=== PATIENT | female | born 1970 | race Caucasian/White ===

== ENCOUNTER 2018-05-16 10:44 | Emergency (ER) | payer SELFPAY ==
[2018-05-16] MEDS ORDERED: IPRATROPIUM BROM 0.5MG/2.5ML ONE (11:39)
[2018-05-16] MEDS ORDERED: ALBUTEROL 2.5 MG/3 ML NEB SOL ONE (11:39)
--- NOTE | 2018-05-16 13:20 | RAD REPORT ---
EXAM DESCRIPTION: Maggie Dobbins (2 Views)05/16/2018 12:03 pm CLINICAL HISTORY: Cough COMPARISON: January 2017 FINDINGS: The lungs appear clear of acute infiltrate. The heart is normal size IMPRESSION: No acute abnormalities displayed
--- NOTE | 2018-05-16 13:26 | ER ---
Nurse's Notes [facility] Name: Zeynep Sagastume Age: 48 yrs Sex: Female : 1970 Arrival Date: 05/16/2018 Time: 10:47 Bed 20 Private MD: None, None Diagnosis: Acute bronchitis Presentation: 05/16 10:48 Presenting complaint: Patient states: Has been out of her thyroid medication for about sg 9 months, has not been able to be seen by the PCP for refills, pt has appointment at the [facility] clinic for checkup, pt states has been really drained of energy and not feeling well. Transition of care: patient was not received from another setting of care. Onset of symptoms was May 16, 2018. Risk Assessment: Do you want to hurt yourself or someone else? Patient reports no desire to harm self or others. Initial Sepsis Screen: Does the patient meet any 2 criteria? No. Patient's initial sepsis screen is negative. Does the patient have a suspected source of infection? No. Patient's initial sepsis screen is negative. Care prior to arrival: None. 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 - Social history:: Smoking status: Patient uses tobacco products, smokes one-half pack cigarettes per day. - Ebola Screening: : Patient negative for fever greater than or equal to 101.5 degrees Fahrenheit, and additional compatible Ebola Virus Disease symptoms Patient denies exposure to infectious person Patient denies travel to an Ebola-affected area in the 21 days before illness onset No symptoms or risks identified at this time. Screenin:15 Abuse screen: Denies threats or abuse. Denies injuries from another. Nutritional jl7 screening: No deficits noted. Tuberculosis screening: No symptoms or risk factors identified. Fall Risk None identified. Assessment: 11:15 General: Appears in no apparent distress. uncomfortable, Behavior is calm, cooperative, jl7 appropriate for age. Pain: Denies pain. Neuro: Level of Consciousness is awake, alert, obeys commands, Oriented to person, place, time, situation. Cardiovascular: Heart tones S1 S2 present Patient's skin is warm and dry. Respiratory: Airway is patent Respiratory effort is even, unlabored, shallow, Respiratory pattern is regular, symmetrical, Breath sounds are clear bilaterally. GI: No signs and/or symptoms were reported involving the gastrointestinal system. : No signs and/or symptoms were reported regarding the genitourinary system. EENT: No signs and/or symptoms were reported regarding the EENT system. Derm: Skin is pink, warm \T\ dry. Musculoskeletal: No signs and/or symptoms reported regarding the musculoskeletal system. 12:30 Reassessment: Patient and/or family updated on plan of care and expected duration. Pain jl7 level reassessed. Patient is alert, oriented x 3, equal unlabored respirations, skin warm/dry/pink. Patient states symptoms have improved. 13:30 Reassessment: Patient and/or family updated on plan of care and expected duration. Pain jl7 level reassessed. Patient is alert, oriented x 3, equal unlabored respirations, skin warm/dry/pink. Vital Signs: 10:50 BP 136 / 106; Pulse 70; Resp 18 S; Temp 97.6; Pulse Ox 100% on R/A; Weight 58.97 kg; sg Pain 0/10; 12:30 BP 132 / 85; Pulse 69; Resp 16; Pulse Ox 100% ; jl7 13:40 BP 131 / 86; Pulse 70; Resp 16; Pulse Ox 99% ; jl7 ED Course: 10:47 Patient arrived in ED. sb2 10:47 None, None is Private Physician. sb2 10:50 Triage completed. sg 10:51 Arm band placed on. EKG completed in triage. Results shown to MD. sg 10:52 William Quezada PA is PHCP. jmm 10:52 Klever Campbell MD is Attending Physician. jmm 10:59 Cynthia Benjamin RN is Primary Nurse. jl7 11:15 Patient has correct armband on for positive identification. Bed in low position. Call jl7 light in reach. Side rails up X 1. Pulse ox on. NIBP on. 11:15 No provider procedures requiring assistance completed. jl7 11:59 Patient moved to radiology. jr1 12:00 Chest Pa And Lat (2 Views) XRAY In Process Unspecified. EDMS 12:00 X-ray completed. Patient tolerated procedure well. jr1 13:42 Patient did not have IV access during this emergency room visit. jl7 Administered Medications: 11:40 Drug: DuoNeb (3:1) (2.5 mg - 0.5 mg) 3 ml Route: Nebulizer; 7 13:10 Follow up: Response: No adverse reaction; Marked relief of symptoms jl7 Outcome: 13:25 Discharge ordered by . payton 13:42 Discharged to home ambulatory, with friend. jl7 13:42 Condition: stable 13:42 Discharge instructions given to patient, Instructed on discharge instructions, follow up and referral plans. medication usage, Demonstrated understanding of instructions, follow-up care, medications, Prescriptions given X 2. 13:43 Patient left the ED. jl7 Signatures: Dispatcher [employer] EDMS Yan De La Garza, RN RN William Yeh PA PA jmm Ringgold, Jennifer jr1 Cynthia Benjamin RN RN jl7 Karey Contreras sb2
--- NOTE | 2018-05-16 13:26 | EDPHYS ---
Physician Documentation [facility] Name: Zeynep Sagastume Age: 48 yrs Sex: Female : 1970 Arrival Date: 05/16/2018 Time: 10:47 Bed 20 Private MD: None, None ED Physician Klever Campbell HPI: 05/16 11:23 This 48 yrs old Female presents to ER via Ambulatory with complaints of UPPER [facility] RESPIRATORY INFECTION. 11:23 The patient or guardian reports cough. Onset: The symptoms/episode began/occurred jmm gradually, 1 month(s) ago. Associated signs and symptoms: Pertinent positives: sore throat. Patient states she was diagnosed with an upper respiratory infection 1 month ago. Has taken a z-pack with no relieft. . 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 - Social history:: Smoking status: Patient uses tobacco products, smokes one-half pack cigarettes per day. - Ebola Screening: : Patient negative for fever greater than or equal to 101.5 degrees Fahrenheit, and additional compatible Ebola Virus Disease symptoms Patient denies exposure to infectious person Patient denies travel to an Ebola-affected area in the 21 days before illness onset No symptoms or risks identified at this time. ROS: 11:23 Eyes: Negative for injury, pain, redness, and discharge, Cardiovascular: Negative for jmm chest pain, palpitations, and edema. 11:23 Abdomen/GI: Negative for abdominal pain, nausea, vomiting, diarrhea, and constipation, Back: Negative for injury and pain, : Negative for injury, bleeding, discharge, and swelling, MS/Extremity: Negative for injury and deformity, Skin: Negative for injury, rash, and discoloration. 11:23 Constitutional: Positive for body aches, chills. 11:23 Respiratory: Positive for cough. 11:23 All other systems are negative. Exam: 11:23 Head/Face: atraumatic. jmm 11:23 Cardiovascular: Regular rate and rhythm. No gallops, murmurs, or rubs. Full/Equal distal pulses. Abdomen/GI: Soft, non-tender, with normal bowel sounds. No distension or tympany. No guarding or rebound. No evidence of tenderness throughout. 11:23 Constitutional: The patient appears in no acute distress, alert, awake. 11:23 ENT: Posterior pharynx: Uvula: normal, midline, swelling, is not appreciated, erythema, that is mild, exudate, is not appreciated. 11:23 Neck: ROM/movement: is normal. 11:23 Respiratory: the patient does not display signs of respiratory distress, Respirations: normal, Breath sounds: wheezing: that is mild, is heard in the left posterior upper lobe. 11:23 Abdomen/GI: Inspection: abdomen appears normal. 11:23 Musculoskeletal/extremity: ROM: intact in all extremities. 11:23 Skin: Appearance: Color: normal in color. 11:23 Neuro: Orientation: is normal, Mentation: is normal, Memory: is normal, Gait: is steady. 11:23 Psych: Behavior/mood is pleasant, cooperative. Vital Signs: 10:50 BP 136 / 106; Pulse 70; Resp 18 S; Temp 97.6; Pulse Ox 100% on R/A; Weight 58.97 kg; sg Pain 0/10; 12:30 BP 132 / 85; Pulse 69; Resp 16; Pulse Ox 100% ; jl7 13:40 BP 131 / 86; Pulse 70; Resp 16; Pulse Ox 99% ; jl7 MDM: 11:21 Patient medically screened. [facility] 11:23 Data reviewed: vital signs, nurses notes. [facility] 13:25 Data reviewed: radiologic studies, plain films. Counseling: I had a detailed discussion [facility] with the patient and/or guardian regarding: the historical points, exam findings, and any diagnostic results supporting the discharge/admit diagnosis, the presence of at least one elevated blood pressure reading (>120/80) during this emergency department visit, radiology results, the need for outpatient follow up, to return to the emergency department if symptoms worsen or persist or if there are any questions or concerns that arise at home. Response to treatment: the patient's symptoms have markedly improved after treatment. 05/16 11:22 Order name: Chest Pa And Lat (2 Views) XRAY; Complete Time: 13:25 [facility] Administered Medications: 11:40 Drug: DuoNeb (3:1) (2.5 mg - 0.5 mg) 3 ml Route: Nebulizer; jl7 13:10 Follow up: Response: No adverse reaction; Marked relief of symptoms jl7 Disposition: 17:50 Co-signature as Attending Physician, Klever Campbell MD. rn Disposition: 05/16/18 13:25 Discharged to Home. Impression: Acute bronchitis. - Condition is Stable. - Discharge Instructions: Acute Bronchitis. - Prescriptions for Prednisone 20 mg Oral Tablet - take 3 tablet by ORAL route once daily for 5 days; 15 tablet. Albuterol Sulfate 90 mcg/actuation - inhale 1-2 puff by INHALATION route every 4-6 hours; 1 Inhaler. - Medication Reconciliation Form, Thank You Letter, Antibiotic Education, Prescription Opioid Use form. - Follow up: Private Physician; When: 2 - 3 days; Reason: Continuance of care. Signatures: Dispatcher [employer] EDYan Child RN RN William Yeh PA PA jmm Nieto, Roman, MD MD rn Leal, Jahala, RN RN jl7 Corrections: (The following items were deleted from the chart) 13:43 13:25 05/16/2018 13:25 Discharged to Home. Impression: Acute bronchitis. Condition is jl7 Stable. Forms are Medication Reconciliation Form, Thank You Letter, Antibiotic Education, Prescription Opioid Use. Follow up: Private Physician; When: 2 - 3 days; Reason: Continuance of care. payton
== END 2018-05-16 13:43 | disposition home or self-care (01) ==
LOC: ER 10:44
DX: J20.9 Acute bronchitis, unspecified (principal); Z88.5 Allergy status to narcotic agent; E03.9 Hypothyroidism, unspecified; F17.210 Nicotine dependence, cigarettes, uncomplicated
CPT/HCPCS: 71046; 94640; 99284

== ENCOUNTER 2019-05-18 12:12 | Emergency (ER) | payer SELFPAY ==
[2019-05-18 13:32] LABS: Absolute Lymphocytes (CBC) 2.2 K/uL (0.7-4.9); Basophils % 0.7 % (0-1.3); Eosinophils % 2.1 % (0-4.4); Lymphocytes % 32.3 % (15.3-44.8); MPV 9.3 fL (7.6-11.3)
[2019-05-18 13:40] LABS: Urine Bacteria <20 /HPF (<20); Urine Culture Reflex Order NOT NEEDED
[2019-05-18 13:44] LABS: Potassium 3.3 mmol/L (3.5-5.1)
[2019-05-18 14:15] LABS: Urine Blood 2+ (NEG); Urine Glucose NEGATIVE (NEG); Urine Protein 1+ (NEG)
--- NOTE | 2019-05-18 15:28 | RAD REPORT ---
EXAM DESCRIPTION: CT - Abdomen Pelvis W Contrast - 05/18/2019 3:05 pm CLINICAL HISTORY: Abdominal pain, hematuria, dysuria, prior hysterectomy and appendectomy COMPARISON: None. TECHNIQUE: Biphasic, helical CT imaging of the abdomen and pelvis was performed following 100 ml non -ionic IV contrast. No oral contrast administered. All CT scans are performed using dose optimization technique as appropriate and may include automated exposure control or mA/KV adjustment according to patient size. FINDINGS: No suspicious findings in the lung bases. The liver, spleen, and pancreas show no suspicious findings. Gallbladder and biliary tree are also wi thout suspicious finding. Symmetric renal function is seen with no hydronephrosis or suspicious renal mass. No pyelonephritis o r acute parenchymal process. No bladder abnormalities. No adrenal abnormalities. Uterus is absent. Ov polly are absent or atrophic. No adnexal mass. No dilated bowel loops or bowel wall thickening. No free air, free fluid or inflammatory stranding. No hernia, mass or bulky lymphadenopathy. No suspicious bony findings. IMPRESSION: Contrast enhanced CT abdomen and pelvis showing no significant or suspicious finding.
--- NOTE | 2019-05-18 16:11 | ER ---
Nurse's Notes [facility] Name: Zeynep Sagastume Age: 49 yrs Sex: Female : 1970 Arrival Date: 05/18/2019 Time: 12:17 Bed 23 [facility] MD: Diagnosis: Dysuria;Abdominal and pelvic pain Presentation: 05/18 12:22 Presenting complaint: Patient states: SOB that began 1 month ago. Pt also reports aa5 urinary urgency and hematuria x 2 weeks ago. Transition of care: patient was not received from another setting of care. Onset of symptoms was March 2019. Risk Assessment: Do you want to hurt yourself or someone else? Patient reports no desire to harm self or others. Initial Sepsis Screen: Does the patient meet any 2 criteria? No. Patient's initial sepsis screen is negative. Does the patient have a suspected source of infection? No. Patient's initial sepsis screen is negative. Care prior to arrival: None. 12:22 Method Of Arrival: Ambulatory aa5 12:22 Acuity: BOB 3 aa5 Triage Assessment: 13:08 Respiratory: Reports shortness of breath at rest since one month ago Onset: The mg2 symptoms/episode began/occurred one month ago, the patient has mild shortness of breath. 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 - Social history:: Smoking status: Patient uses tobacco products, smokes one-half pack cigarettes per day. - Ebola Screening: : No symptoms or risks identified at this time. Screenin:55 Abuse screen: Denies threats or abuse. Denies injuries from another. Nutritional mg2 screening: No deficits noted. Tuberculosis screening: No symptoms or risk factors identified. Fall Risk None identified. Assessment: 12:56 General: Appears in no apparent distress. comfortable, Behavior is calm, cooperative. mg2 Neuro: Level of Consciousness is awake, alert, obeys commands, Oriented to person, place, time, situation. Cardiovascular: Capillary refill < 3 seconds Patient's skin is warm and dry. Respiratory: Airway is patent Respiratory effort is even, unlabored, Respiratory pattern is regular, symmetrical. GI: No signs and/or symptoms were reported involving the gastrointestinal system. : No signs and/or symptoms were reported regarding the genitourinary system. EENT: No signs and/or symptoms were reported regarding the EENT system. Derm: Skin is intact, is healthy with good turgor, Skin is pink, warm \T\ dry. normal. Musculoskeletal: Circulation, motion, and sensation intact. Capillary refill < 3 seconds. 13:08 Pain: Denies pain. Respiratory: Breath sounds are clear bilaterally. in right upper mg2 lobe, left upper lobe, left posterior upper lobe, right posterior upper lobe, left posterior lower lobe, right posterior middle lobe and right posterior lower lobe. 16:00 Cardiovascular: Rhythm is sinus rhythm. mg2 16:21 Reassessment: Patient denies pain at this time. mg2 Vital Signs: 12:25 BP 143 / 84; Pulse 75; Resp 16 S; Temp 98.7(TE); Pulse Ox 100% on R/A; Weight 48.99 kg aa5 (R); Height 5 ft. 4 in. (162.56 cm) (R); Pain 8/10; 13:30 BP 123 / 73 LA (auto/reg); Pulse 69; Pulse Ox 96% on R/A; jp3 14:32 BP 110 / 49; Pulse 69; Resp 18; Temp 98; Pulse Ox 100% on R/A; mg2 15:17 BP 90 / 64; Pulse 56; Pulse Ox 99% on R/A; mg2 15:49 BP 135 / 71; Pulse 60; Resp 18; Pulse Ox 98% on R/A; mg2 16:21 BP 121 / 67; Pulse 61; Resp 18; Temp 98; Pulse Ox 100% on R/A; Pain 0/10; mg2 12:25 Body Mass Index 18.54 (48.99 kg, 162.56 cm) aa5 ED Course: 12:17 Patient arrived in ED. mr 12:22 Arm band placed on. aa5 12:24 Triage completed. aa5 12:54 Leandro Jacques, RN is Primary Nurse. mg2 12:55 Patient has correct armband on for positive identification. Pulse ox on. NIBP on. Door mg2 closed. Warm blanket given. 12:55 Pillow given. Verbal reassurance given. jp3 12:56 No provider procedures requiring assistance completed. mg2 13:03 Carson David PA is PHCP. jr8 13:03 Evan Rodríguez MD is Attending Physician. jr8 13:17 Urine Microscopic Only Sent. jp3 13:18 Urine Microscopic Only Sent. jp3 13:26 Inserted saline lock: 20 gauge in right antecubital area, using aseptic technique. mg2 Blood collected. 15:05 CT completed. Patient tolerated procedure well. Patient moved back from CT. kw1 15:06 CT Abd/Pelvis - IV Contrast Only In Process Unspecified. EDMS 16:10 Javi Melendez MD is Referral Physician. jr8 16:22 IV discontinued, intact, bleeding controlled, No redness/swelling at site. Pressure mg2 dressing applied. Administered Medications: No medications were administered Outcome: 16:11 Discharge ordered by . jr8 16:22 Discharged to home ambulatory, with family. mg2 16:22 Condition: stable 16:22 Discharge instructions given to patient, family, Instructed on discharge instructions, follow up and referral plans. Demonstrated understanding of instructions, follow-up care. 16:25 Patient left the ED. mg2 Signatures: Dispatcher [employer] EDMN Arpita Rosa ShirazLinh, RN RN aa5 Carson David PA PA jr8 Emelia Robb kw1 Leandro Jacques RN RN mg2 Redd Sierra jp3
--- NOTE | 2019-05-18 16:11 | EDPHYS ---
Physician Documentation [facility] Name: Zeynep Sagastume Age: 49 yrs Sex: Female : 1970 Arrival Date: 05/18/2019 Time: 12:17 Bed 23 Private MD: ED Physician Evan Rodríguez HPI: 05/18 16:11 This 49 yrs old Female presents to ER via Ambulatory with complaints of jr8 Urinary Problem. 16:11 The patient presents with urinary symptoms, frequency, hematuria. Onset: The jr8 symptoms/episode began/occurred gradually, 2 week(s) ago. Modifying factors: The symptoms are alleviated by nothing, the symptoms are aggravated by nothing. Associated signs and symptoms: Pertinent positives: cramping, nausea. Severity of symptoms: At their worst the symptoms were mild, in the emergency department the symptoms are unchanged. The patient has not experienced similar symptoms in the past. The patient has not recently seen a physician. 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 - Social history:: Smoking status: Patient uses tobacco products, smokes one-half pack cigarettes per day. - Ebola Screening: : No symptoms or risks identified at this time. ROS: 14:11 Eyes: Negative for injury, pain, redness, and discharge, ENT: Negative for injury, jr8 pain, and discharge, Neck: Negative for injury, pain, and swelling, Cardiovascular: Negative for chest pain, palpitations, and edema, Respiratory: Negative for shortness of breath, cough, wheezing, and pleuritic chest pain, Back: Negative for injury and pain, MS/Extremity: Negative for injury and deformity, Skin: Negative for injury, rash, and discoloration, Neuro: Negative for headache, weakness, numbness, tingling, and seizure. 14:11 Abdomen/GI: Positive for abdominal pain, Negative for nausea, vomiting, and diarrhea, abdominal distension, anorexia, dysphagia, hematemesis, black/tarry stool, rectal pain, rectal bleeding, bowel incontinence, flatulence. 14:11 : Positive for urinary frequency, hematuria, Negative for vaginal bleeding, vaginal discharge, vaginal itching. Exam: 14:11 Eyes: Pupils equal round and reactive to light, extra-ocular motions intact. Lids and jr8 lashes normal. Conjunctiva and sclera are non-icteric and not injected. Cornea within normal limits. Periorbital areas with no swelling, redness, or edema. ENT: Nares patent. No nasal discharge, no septal abnormalities noted. Tympanic membranes are normal and external auditory canals are clear. Oropharynx with no redness, swelling, or masses, exudates, or evidence of obstruction, uvula midline. Mucous membranes moist. Neck: Trachea midline, no thyromegaly or masses palpated, and no cervical lymphadenopathy. Supple, full range of motion without nuchal rigidity, or vertebral point tenderness. No Meningismus. Cardiovascular: Regular rate and rhythm with a normal S1 and S2. No gallops, murmurs, or rubs. Normal PMI, no JVD. No pulse deficits. Respiratory: Lungs have equal breath sounds bilaterally, clear to auscultation and percussion. No rales, rhonchi or wheezes noted. No increased work of breathing, no retractions or nasal flaring. Back: No spinal tenderness. No costovertebral tenderness. Full range of motion. Skin: Warm, dry with normal turgor. Normal color with no rashes, no lesions, and no evidence of cellulitis. MS/ Extremity: Pulses equal, no cyanosis. Neurovascular intact. Full, normal range of motion. Neuro: Awake and alert, GCS 15, oriented to person, place, time, and situation. Cranial nerves II-XII grossly intact. Motor strength 5/5 in all extremities. Sensory grossly intact. Cerebellar exam normal. Normal gait. 14:11 Abdomen/GI: Inspection: abdomen appears normal, Bowel sounds: active, all quadrants, Palpation: soft, in all quadrants, mild abdominal tenderness, in the suprapubic area, right lower quadrant and left lower quadrant, mass, is not appreciated, rebound tenderness, is not appreciated, voluntary guarding, is not appreciated, involuntary guarding, is not appreciated, no appreciated organomegaly, Rectal exam: rectal tone normal, Stool: brown, hemorrhoid(s), are not appreciated, mass, is not appreciated, swelling, is not appreciated, tenderness, is not appreciated, fecal impaction, is not appreciated, the exam is chaperoned by the nurse, Indicators: McBurney's point is not tender, Reddy's sign is negative, Rovsing's sign is negative, Liver: tenderness, is not appreciated. Vital Signs: 12:25 BP 143 / 84; Pulse 75; Resp 16 S; Temp 98.7(TE); Pulse Ox 100% on R/A; Weight 48.99 kg aa5 (R); Height 5 ft. 4 in. (162.56 cm) (R); Pain 8/10; 13:30 BP 123 / 73 LA (auto/reg); Pulse 69; Pulse Ox 96% on R/A; jp3 14:32 BP 110 / 49; Pulse 69; Resp 18; Temp 98; Pulse Ox 100% on R/A; mg2 15:17 BP 90 / 64; Pulse 56; Pulse Ox 99% on R/A; mg2 15:49 BP 135 / 71; Pulse 60; Resp 18; Pulse Ox 98% on R/A; mg2 16:21 BP 121 / 67; Pulse 61; Resp 18; Temp 98; Pulse Ox 100% on R/A; Pain 0/10; mg2 12:25 Body Mass Index 18.54 (48.99 kg, 162.56 cm) aa5 MDM: 13:03 Patient medically screened. jr8 16:10 Data reviewed: vital signs, nurses notes, lab test result(s), radiologic studies, CT jr8 scan. Data interpreted: Pulse oximetry: on room air is 99 %. Interpretation: normal. Counseling: I had a detailed discussion with the patient and/or guardian regarding: the historical points, exam findings, and any diagnostic results supporting the discharge/admit diagnosis, lab results, radiology results, the need for outpatient follow up, a family practitioner, a urologist, to return to the emergency department if symptoms worsen or persist or if there are any questions or concerns that arise at home. 05/18 13:04 Order name: Urine Microscopic Only; Complete Time: 13:43 8 05/18 13:15 Order name: Basic Metabolic Panel; Complete Time: 13:47 8 05/18 13:15 Order name: CBC with Diff; Complete Time: 13:37 8 05/18 13:15 Order name: Creatinine for Radiology; Complete Time: 13:47 [facility] 05/18 13:28 Order name: Urine Dipstick--Ancillary (enter results); Complete Time: 14:16 3 05/18 13:04 Order name: Urine Dipstick-Ancillary (obtain specimen); Complete Time: 13:08 [facility] 05/18 13:15 Order name: IV Saline Lock; Complete Time: 13:26 [facility] 05/18 13:15 Order name: Labs collected and sent; Complete Time: 13:26 [facility] 05/18 14:12 Order name: CT Abd/Pelvis - IV Contrast Only; Complete Time: 15:38 [facility] Administered Medications: No medications were administered Disposition: 05/19 10:09 Co-signature as Attending Physician, Evan Rodríguez MD I agree with the assessment and анна plan of care. Disposition: 05/18/19 16:11 Discharged to Home. Impression: Dysuria, Abdominal and pelvic pain. - Condition is Stable. - Discharge Instructions: Abdominal Pain, Adult, Dysuria. - Medication Reconciliation Form, Thank You Letter, Antibiotic Education, Prescription Opioid Use form. - Follow up: Javi Melendez MD; When: 5 - 6 days; Reason: Recheck today's complaints, Continuance of care, Re-evaluation by your physician. - Problem is new. - Symptoms have improved. Signatures: Dispatcher [employer] EDEvan Irizarry MD MD cha Calderon, Audri, RN RN aa5 Carson David PA PA jr8 Leandro Jacques RN RN mg2 Corrections: (The following items were deleted from the chart) 05/18 16:25 16:11 05/18/2019 16:11 Discharged to Home. Impression: Dysuria; Abdominal and pelvic mg2 pain. Condition is Stable. Forms are Medication Reconciliation Form, Thank You Letter, Antibiotic Education, Prescription Opioid Use. Follow up: Javi Melendez; When: 5 - 6 days; Reason: Recheck today's complaints, Continuance of care, Re-evaluation by your physician. Problem is new. Symptoms have improved. jr8
== END 2019-05-18 16:25 | disposition home or self-care (01) ==
LOC: ER 12:12
DX: R10.2 Pelvic and perineal pain (principal); E03.9 Hypothyroidism, unspecified; F17.210 Nicotine dependence, cigarettes, uncomplicated; Z88.5 Allergy status to narcotic agent
CPT/HCPCS: 36415; 74177; 80048; 81003; 81015; 85025; 99285; Q9967

== ENCOUNTER 2021-12-02 19:04 | Emergency (ER) | payer SELFPAY ==
--- OUTSIDE RECORDS SUMMARY | 2021-12-02 19:09 | XMS REPORT | Continuity of Care Document ---
:1970 Author Organization [facility] t Address [address] [place] [address] [address] [place] [address] Care Team Providers Name Role Phone Yenifer Post Primary Care Physician CATARINA Attending Clinician Unavailable Dominik Post Attending Clinician [phone] VALERIO Attending Clinician Unavailable Valerio WEST Attending Clinician Swallows, Speech Modified Barium Attending Clinician Adolph alston Doctor Unassigned, Name Attending Clinician Unavailable JAILYN Attending Clinician Unavailable Delroy CLOCK MAKER, G Attending Clinician Jailyn WEST Attending Clinician Pcp-Lab Attending Clinician Unavailable Koffi WEST H Attending Clinician Orlin RAIN Attending Clinician Unavailable JAMIA_Pedro Pablo Admitting Clinician Unavailable Payers Payer Name Policy Type Policy Number Effective Date [facility]piration Date [facility] [id number] 2021 [facility] 00:00:00 Problems Condition Condition Condition Status Onset Resolution Last Treating Co mments Source Name Details Category Date Date Treatment Clinician Date Bronchitis Bronchitis Disease Active 2017-0 U nivers , chronic , chronic 6-02 [place] 00 Med[facility] urszula bronchitis bronchitis Br anch Allergies, Adverse Reactions, Alerts Allergy Allergy Status Severity Reaction(s) Onset Inactive Treating Comm ents Source Name Type Date Date Clinician MEPERIDI DRUG Active Rash 2014-11 [facility] [place] HCL INGREDI 2- ity of 00:00: [address] Meperidi Propensi Active Rash 2014-11 [facility]31 ity of adverse 00:00: [place] reaction Medical s Branch Social History Social Habit Start Date Stop Date Quantity Comments Source Exposure to Not sure University of SARS-CoV-2 [facility] (event) Branch Tobacco use and 2021-03-24 2021-03-24 Never used Universit y of exposure 00:00:00 00:00:00 [facility] Tobacco Comment 2018-04-27 2018-04-27 pt trying to Univers ity of 00:00:00 00:00:00 quit with VAPE [facility] Sex Assigned At [birth year] Universit y of 00:00:00 00:00:00 [facility] Smoking Status Start Date Stop Date Source Current every day smoker 2021-03-24 00:00:00 Uni versity of [facility] Medications Ordered Filled Start Stop Current Ordering Indication Dosage Frequency Signature Comments Components Source Medication Medication Date Date Medication? Clinician (SIG) Name Name barium 2020- No [id number] 10mL 10 mL, Univ ers sulfate-NO 03-31-06 Oral, ity of CHARGE- 14:30: 14:20 ONCE, 1 [place] (VARIBAR 00 :00 dose, [facility] NECTOR) 40 03/31/21 at Bran ch % (w/v) 0930, oral Routine suspension 10 mL barium 2020- No [id number] 30g 30 g, Unive rs sulfate 03-31 05-06 Oral, ity of (VARIBAR 14:30: 14:20 ONCE, 1 [place] THIN 00 :00 dose, [facility] LIQUID) 81 5 at Bran ch % (w/w) 0930, oral powder Routine 30 g barium 2020- No [id number] 10mL 10 mL, Univ ers sulfate-NO 03-31 05-06 Oral, ity of CHARGE- 14:30: 14:20 ONCE, 1 [place] (VARIBAR 00 :00 dose, [facility] NECTOR) 40 5 at Bran ch % (w/v) 0930, oral Routine suspension 10 mL barium 2020- No [id number] 30g 30 g, Unive rs sulfate 03-31 05-06 Oral, ity of (VARIBAR 14:30: 14:20 ONCE, 1 [place] THIN 00 :00 dose, [facility] LIQUID) 81 03/31/21 at Bran ch % (w/w) 0930, oral powder Routine 30 g hydrOXYzine Yes hydroxyzin Univers 25 mg 4-29 e HCl 25 ity of tablet 14:52: mg tablet [place] 48 Take 1 Medical tablet Branch twice a day by oral route. hydrOXYzine Yes hydroxyzin Univers 25 mg 4-29 e HCl 25 ity of tablet 14:52: mg tablet [place] 48 Take 1 Medical tablet Branch twice a day by oral route. hydrOXYzine Yes hydroxyzin Univers 25 mg 4-29 e HCl 25 ity of tablet 14:52: mg tablet [place] 48 Take 1 Medical tablet Branch twice a day by oral route. hydrOXYzine Yes hydroxyzin Univers 25 mg 4-29 e HCl 25 ity of tablet 14:52: mg tablet [place] 48 Take 1 Medical tablet Branch twice a day by oral route. hydrOXYzine Yes hydroxyzin Univers 25 mg 4-29 e HCl 25 ity of tablet 14:52: mg tablet [place] 48 Take 1 Medical tablet Branch twice a day by oral route. hydrOXYzine Yes hydroxyzin Univers 25 mg 4-29 e HCl 25 ity of tablet 14:52: mg tablet [place] 48 Take 1 Medical tablet Branch twice a day by oral route. hydrOXYzine Yes hydroxyzin Univers 25 mg 4-29 e HCl 25 ity of tablet 14:52: mg tablet 48 Take 1 Medical tablet Branch twice a day by oral route. hydrOXYzine Yes hydroxyzin Univers 25 mg 4-29 e HCl 25 ity of tablet 14:52: mg tablet [place] 48 Take 1 Medical tablet Branch twice a day by oral route. hydrOXYzine Yes hydroxyzin Univers 25 mg 4-29 e HCl 25 ity of tablet 14:52: mg tablet 48 Take 1 Medical tablet Branch twice a day by oral route. omeprazole Yes [id number] 40mg Take 1 U nivers 40 mg 4-29 capsule by ity of capsule 00:00: mouth 2 00 (two) Medical times Branch daily. omeprazole Yes [id number] 40mg Take 1 U nivers 40 mg 4-29 capsule by ity of capsule 00:00: mouth [place] (two) Medical times Branch daily. omeprazole 1-0 Yes [id number] 40mg Take 1 U nivers 40 mg 4-29 capsule by ity of capsule 00:00: mouth (two) Medical times Branch daily. omeprazole 1-0 Yes [id number] 40mg Take 1 U nivers 40 mg 4-29 capsule by ity of capsule 00:00: mouth [place] (two) Medical times Branch daily. omeprazole 2020-0 Yes [id number] 40mg Take 1 U nivers 40 mg 4-29 capsule by ity of capsule 00:00: mouth [place] (two) Medical times Branch daily. omeprazole 1-0 Yes [id number] 40mg Take 1 U nivers 40 mg 4-29 capsule by ity of capsule 00:00: mouth [place] (two) Medical times Branch daily. omeprazole 2020-0 Yes [id number] 40mg Take 1 U nivers 40 mg 4-29 capsule by ity of capsule 00:00: mouth [place] (two) Medical times Branch daily. omeprazole 2020-0 Yes Dysphagia, 40mg Take 1 Univers 40 mg 4-29 unspecified capsule by i ty of capsule 00:00: type mouth [place] (two) Medical times Branch daily. omeprazole 2020-0 Yes Dysphagia, 40mg Take 1 Univers 40 mg 4-29 unspecified capsule by i ty of capsule 00:00: type mouth 2 [place] (two) Medical times Branch daily. Levothyroxi 2020-0 2020- No Take by U nivers ne 06-26 mouth. ity of (TIROSINT) 23:51: 00:00 [place] 125 mcg 16 :00 Medical capsule Branch Levothyroxi 2020-0 2020- No Take by U nivers ne 06-26 mouth. ity of (TIROSINT) 23:51: 00:00 [place] 125 mcg 16 :00 Medical capsule Branch levothyroxi 2020-0 Yes [id number] 125ug Take 1 Univers ne 125 mcg 8- tablet by ity of tablet 00:00: mouth [place] 00 every Medical morning. Branch levothyroxi 2020-0 Yes [id number] 125ug Take 1 Univers ne 125 mcg 8- tablet by ity of tablet 00:00: mouth [place] 00 every Medical morning. Branch levothyroxi 2020-0 Yes [id number] 125ug Take 1 Univers ne 125 mcg 8-01 tablet by ity of tablet 00:00: mouth [place] 00 every Medical morning. Branch levothyroxi 2020-0 Yes [id number] 125ug Take 1 Univers ne 125 mcg 8-01 tablet by ity of tablet 00:00: mouth [place] 00 every Medical morning. Branch levothyroxi 2020-0 Yes [id number] 125ug Take 1 Univers ne 125 mcg 8-01 tablet by ity of tablet 00:00: mouth [place] 00 every Medical morning. Branch levothyroxi 2020-0 Yes [id number] 125ug Take 1 Univers ne 125 mcg 8-01 tablet by ity of tablet 00:00: mouth [place] 00 every Medical morning. Branch levothyroxi 2020-0 Yes [id number] 125ug Take 1 Univers ne 125 mcg 8-01 tablet by ity of tablet 00:00: mouth [place] 00 every Medical morning. Branch levothyroxi 2020-0 Yes [id number] 125ug Take 1 Univers ne 125 mcg 8-01 tablet by ity of tablet 00:00: mouth [place] 00 every Medical morning. Branch levothyroxi 2020-0 Yes [id number] 125ug Take 1 Univers ne 125 mcg 8-01 tablet by ity of tablet 00:00: mouth [place] 00 every Medical morning. Branch levothyroxi 2020-0 Yes [id number] 125ug Take 1 Univers ne 125 mcg 8-01 tablet by ity of tablet 00:00: mouth [place] 00 every Medical morning. Branch levothyroxi 2020-0 Yes [id number] 125ug Take 1 Univers ne 125 mcg 8-01 tablet by ity of tablet 00:00: mouth [place] 00 every Medical morning. Branch levothyroxi 2020-0 Yes Primary 125ug Take 1 Univers ne 125 mcg 8-01 hypothyroid tablet by ity of tablet 00:00: ism mouth [place] 00 every Medical morning. Branch levothyroxi 2020-0 Yes Primary 125ug Take 1 Univers ne 125 mcg 8-01 hypothyroid tablet by ity of tablet 00:00: ism mouth [place] 00 every Medical morning. Branch azithromyci 2018-0 Yes 250mg Take 1 Uni vers n 250 mg 6-02 tablet by ity of tablet 00:00: mouth [place] 00 SEE-INSTRU Medical CTIONS. Branch Take 500 mg day 1, then 250 mg days 2 to 5. azithromyci 2018-0 Yes 250mg Take 1 Uni vers n 250 mg 6-02 tablet by ity of tablet 00:00: mouth [place] [facility] Medical CTIONS. Branch Take 500 mg day 1, then 250 mg days 2 to 5. azithromyci 2018-0 Yes 250mg Take 1 Uni vers n 250 mg 6-02 tablet by ity of tablet 00:00: mouth [place] [facility] Medical CTIONS. Branch Take 500 mg day 1, then 250 mg days 2 to 5. azithromyci 2018-0 Yes 250mg Take 1 Uni vers n 250 mg 6-02 tablet by ity of tablet 00:00: mouth [place] [facility] Medical CTIONS. Branch Take 500 mg day 1, then 250 mg days 2 to 5. azithromyci 2018-0 Yes 250mg Take 1 Uni vers n 250 mg 6-02 tablet by ity of tablet 00:00: mouth [place] [facility] Medical CTIONS. Branch Take 500 mg day 1, then 250 mg days 2 to 5. azithromyci 2018-0 Yes 250mg Take 1 Uni vers n 250 mg 6-02 tablet by ity of tablet 00:00: mouth [place] [facility] Medical CTIONS. Branch Take 500 mg day 1, then 250 mg days 2 to 5. azithromyci 2018-0 Yes 250mg Take 1 Uni vers n 250 mg 6-02 tablet by ity of tablet 00:00: mouth [facility] Medical CTIONS. Branch Take 500 mg day 1, then 250 mg days 2 to 5. azithromyci 2018-0 Yes 250mg Take 1 Uni vers n 250 mg 6-02 tablet by ity of tablet 00:00: mouth [place] [facility] Medical CTIONS. Branch Take 500 mg day 1, then 250 mg days 2 to 5. azithromyci 2018-0 Yes 250mg Take 1 Uni vers n 250 mg 6-02 tablet by ity of tablet 00:00: mouth [place] [facility] Medical CTIONS. Branch Take 500 mg day 1, then 250 mg days 2 to 5. azithromyci 2018-0 Yes 250mg Take 1 Uni vers n 250 mg 6-02 tablet by ity of tablet 00:00: mouth [place] [facility] CTIONS. Branch Take 500 mg day 1, then 250 mg days 2 to 5. azithromyci 2018-0 Yes 250mg Take 1 Uni vers n 250 mg 6-02 tablet by ity of tablet 00:00: mouth [place] [facility] CTIONS. Branch Take 500 mg day 1, then 250 mg days 2 to 5. azithromyci 2018-0 Yes 250mg Take 1 Uni vers n 250 mg 6-02 tablet by ity of tablet 00:00: mouth [place] [facility] CTIONS. Branch Take 500 mg day 1, then 250 mg days 2 to 5. azithromyci 2018-0 Yes 250mg Take 1 Uni vers n 250 mg 6-02 tablet by ity of tablet 00:00: mouth [place] [facility] CTIONS. Branch Take 500 mg day 1, then 250 mg days 2 to 5. azithromyci 2018-0 Yes 250mg Take 1 Uni vers n 250 mg 6-02 tablet by ity of tablet 00:00: mouth [place] [facility] CTIONS. Branch Take 500 mg day 1, then 250 mg days 2 to 5. azithromyci 2018-0 Yes 250mg Take 1 Uni vers n 250 mg 6-02 tablet by ity of tablet 00:00: mouth [place] [facility] CTIONS. Branch Take 500 mg day 1, then 250 mg days 2 to 5. azithromyci 2018-0 Yes 250mg Take 1 Uni vers n 250 mg 6-02 tablet by ity of tablet 00:00: mouth [place] [facility] CTIONS. Branch Take 500 mg day 1, then 250 mg days 2 to 5. Levothyroxi 2018-0 Yes Take by Un sukumar ne 2-08 mouth. ity of (TIROSINT) 17:22: [place] 125 mcg 55 Medical capsule Branch Levothyroxi 2018-0 Yes Take by Un sukumar ne 2-08 mouth. ity of (TIROSINT) 17:22: [place] 125 mcg 55 Medical capsule Branch Levothyroxi 2018-0 Yes Take by Un sukumar ne 2-08 mouth. ity of (TIROSINT) 17:22: [place] 125 mcg 55 Medical capsule Branch levothyroxi 2018-0 Yes 125ug Take 1 Uni vers ne 125 mcg 2-08 tablet by ity of tablet 00:00: mouth [place] 00 daily. Medical Branch levothyroxi 2018-0 Yes 125ug Take 1 Uni vers ne 125 mcg 2-08 tablet by ity of tablet 00:00: mouth [place] 00 daily. Medical Branch levothyroxi 2018-0 Yes 125ug Take 1 Uni vers ne 125 mcg 2-08 tablet by ity of tablet 00:00: mouth [place] 00 daily. Medical Branch levothyroxi 2018-0 2020- No 125ug Take 1 Un sukumar ne 125 mcg 2-08 08-01 tablet by ity of tablet 00:00: 00:00 mouth [place] 00 :00 daily. Medical Branch levothyroxi 2018-0 2020- No 125ug Take 1 Un sukumar ne 125 mcg 2-08 08-01 tablet by ity of tablet 00:00: 00:00 mouth [place] 00 :00 daily. Medical Branch ketorolac 2017-0 Yes 10mg Take 1 Univer s 10 mg 2-17 tablet by ity of tablet 00:00: mouth [place] 00 every 6 Medical (six) Branch hours as needed for Pain (scale 4-6). orphenadrin 2017-0 Yes 100mg Take 1 Uni vers e 100 mg SR 2-17 tablet by ity of tablet 00:00: mouth [place] 00 every 12 Medical (twelve) Branch hours. ketorolac 2017-0 Yes 10mg Take 1 Univer s 10 mg 2-17 tablet by ity of tablet 00:00: mouth [place] 00 every 6 Medical (six) Branch hours as needed for Pain (scale 4-6). orphenadrin 2017-0 Yes 100mg Take 1 Uni vers e 100 mg SR 2-17 tablet by ity of tablet 00:00: mouth [place] 00 every 12 Medical (twelve) Branch hours. ketorolac 2017-0 Yes 10mg Take 1 Univer s 10 mg 2-17 tablet by ity of tablet 00:00: mouth [place] 00 every 6 Medical (six) Branch hours as needed for Pain (scale 4-6). orphenadrin 2017-0 Yes 100mg Take 1 Uni vers e 100 mg SR 2-17 tablet by ity of tablet 00:00: mouth [place] 00 every 12 Medical (twelve) Branch hours. ketorolac 2017-0 Yes 10mg Take 1 Univer s 10 mg 2-17 tablet by ity of tablet 00:00: mouth [place] 00 every 6 Medical (six) Branch hours as needed for Pain (scale 4-6). orphenadrin 2017-0 Yes 100mg Take 1 Uni vers e 100 mg SR 2-17 tablet by ity of tablet 00:00: mouth [place] 00 every 12 Medical (twelve) Branch hours. ketorolac 2017-0 Yes 10mg Take 1 Univer s 10 mg 2-17 tablet by ity of tablet 00:00: mouth [place] 00 every 6 Medical (six) Branch hours as needed for Pain (scale 4-6). orphenadrin 2017-0 Yes 100mg Take 1 Uni vers e 100 mg SR 2-17 tablet by ity of tablet 00:00: mouth [place] 00 every 12 Medical (twelve) Branch hours. ketorolac 2017-0 Yes 10mg Take 1 Univer s 10 mg 2-17 tablet by ity of tablet 00:00: mouth [place] 00 every 6 Medical (six) Branch hours as needed for Pain (scale 4-6). orphenadrin 2017-0 Yes 100mg Take 1 Uni vers e 100 mg SR 2-17 tablet by ity of tablet 00:00: mouth [place] 00 every 12 Medical (twelve) Branch hours. ketorolac 2017-0 Yes 10mg Take 1 Univer s 10 mg 2-17 tablet by ity of tablet 00:00: mouth [place] 00 every 6 Medical (six) Branch hours as needed for Pain (scale 4-6). orphenadrin 2017-0 Yes 100mg Take 1 Uni vers e 100 mg SR 2-17 tablet by ity of tablet 00:00: mouth [place] 00 every 12 Medical (twelve) Branch hours. ketorolac 2017-0 Yes 10mg Take 1 Univer s 10 mg 2-17 tablet by ity of tablet 00:00: mouth [place] 00 every 6 Medical (six) Branch hours as needed for Pain (scale 4-6). orphenadrin 2017-0 Yes 100mg Take 1 Uni vers e 100 mg SR 2-17 tablet by ity of tablet 00:00: mouth [place] 00 every 12 Medical (twelve) Branch hours. ketorolac 2017-0 Yes 10mg Take 1 Univer s 10 mg 2-17 tablet by ity of tablet 00:00: mouth [place] 00 every 6 Medical (six) Branch hours as needed for Pain (scale 4-6). orphenadrin 2017-0 Yes 100mg Take 1 Uni vers e 100 mg SR 2-17 tablet by ity of tablet 00:00: mouth [place] 00 every 12 Medical (twelve) Branch hours. ketorolac 2017-0 Yes 10mg Take 1 Univer s 10 mg 2-17 tablet by ity of tablet 00:00: mouth [place] 00 every 6 Medical (six) Branch hours as needed for Pain (scale 4-6). orphenadrin 2017-0 Yes 100mg Take 1 Uni vers e 100 mg SR 2-17 tablet by ity of tablet 00:00: mouth [place] 00 every 12 Medical (twelve) Branch hours. ketorolac 2017-0 Yes 10mg Take 1 Univer s 10 mg 2-17 tablet by ity of tablet 00:00: mouth [place] 00 every 6 Medical (six) Branch hours as needed for Pain (scale 4-6). orphenadrin 2017-0 Yes 100mg Take 1 Uni vers e 100 mg SR 2-17 tablet by ity of tablet 00:00: mouth [place] 00 every 12 Medical (twelve) Branch hours. ketorolac 2017-0 Yes 10mg Take 1 Univer s 10 mg 2-17 tablet by ity of tablet 00:00: mouth [place] 00 every 6 Medical (six) Branch hours as needed for Pain (scale 4-6). orphenadrin 2017-0 Yes 100mg Take 1 Uni vers e 100 mg SR 2-17 tablet by ity of tablet 00:00: mouth [place] 00 every 12 Medical (twelve) Branch hours. ketorolac 2017-0 Yes 10mg Take 1 Univer s 10 mg 2-17 tablet by ity of tablet 00:00: mouth [place] 00 every 6 Medical (six) Branch hours as needed for Pain (scale 4-6). orphenadrin 2017-0 Yes 100mg Take 1 Uni vers e 100 mg SR 2-17 tablet by ity of tablet 00:00: mouth [place] 00 every 12 Medical (twelve) Branch hours. ketorolac 2017-0 Yes 10mg Take 1 Univer s 10 mg 2-17 tablet by ity of tablet 00:00: mouth [place] 00 every 6 Medical (six) Branch hours as needed for Pain (scale 4-6). orphenadrin 2017-0 Yes 100mg Take 1 Uni vers e 100 mg SR 2-17 tablet by ity of tablet 00:00: mouth [place] 00 every 12 Medical (twelve) Branch hours. ketorolac 2017-0 Yes 10mg Take 1 Univer s 10 mg 2-17 tablet by ity of tablet 00:00: mouth [place] 00 every 6 Medical (six) Branch hours as needed for Pain (scale 4-6). orphenadrin 2017-0 Yes 100mg Take 1 Uni vers e 100 mg SR 2-17 tablet by ity of tablet 00:00: mouth [place] 00 every 12 Medical (twelve) Branch hours. ketorolac 2017-0 Yes 10mg Take 1 Univer s 10 mg 2-17 tablet by ity of tablet 00:00: mouth [place] 00 every 6 Medical (six) Branch hours as needed for Pain (scale 4-6). orphenadrin 2017-0 Yes 100mg Take 1 Uni vers e 100 mg SR 2-17 tablet by ity of tablet 00:00: mouth [place] 00 every 12 Medical (twelve) Branch hours. Immunizations Ordered Filled Immunization Date Status Comments [facility] e Immunization Name Name Td 2015-11-25 Completed University of 00:00:00 [facility] Td 2015-11-25 Completed University of 00:00:00 [facility] Td 2015-11-25 Completed University of 00:00:00 [facility] Td 2015-11-25 Completed University of 00:00:00 [facility] Td 2015-11-25 Completed University of 00:00:00 [facility] Td 2015-11-25 Completed University of 00:00:00 [facility] Td 2015-11-25 Completed University of 00:00:00 [facility] Td 2015-11-25 Completed University of 00:00:00 [facility] Td 2015-11-25 Completed University of 00:00:00 [facility] Td 2015-11-25 Completed University of 00:00:00 [facility] Td 2015-11-25 Completed University of 00:00:00 [facility] Td 2015-11-25 Completed University of 00:00:00 [facility] Td 2015-11-25 Completed University of 00:00:00 [facility] Td 2015-11-25 Completed University of 00:00:00 [facility] Td 2015-11-25 Completed University of 00:00:00 [facility] Td 2015-11-25 Completed University of 00:00:00 [facility] Vital Signs Vital Name Observation Time Observation Value Comments Source Systolic blood 2021-03-24 14:50:00 124 mm[Hg] Univer sity of pressure [place] [facility] Diastolic blood 2021-03-24 14:50:00 69 mm[Hg] Unive rsity of pressure [place] [facility] Heart rate 2021-03-24 14:50:00 66 /min [facility] [place] [facility] Body temperature 2021-03-24 14:50:00 36.78 Liza Univ ersity of [place] [facility] Body height 2021-03-24 14:50:00 162.6 cm [facility] [place] [facility] Body weight 2021-03-24 14:50:00 56.518 kg [facility] [place] [facility] BMI 2021-03-24 14:50:00 21.39 kg/m2 [facility] [place] [facility] Oxygen saturation in 2021-03-24 14:50:00 97 /min University of Arterial blood by [facility] Pulse oximetry Branch Diastolic blood 2020-07-16 01:38:00 88 mm[Hg] Unive rsity of pressure [place] [facility] Heart rate 2020-07-16 01:38:00 107 /min [facility]i ty [facility] [place] [facility] Body temperature 2020-07-16 01:38:00 36.72 Liza Univ ers[facility] [place] [facility] Respiratory rate 2020-07-16 01:38:00 16 /min Univ ers[facility] [place] [facility] Body height 2020-07-16 01:38:00 162.6 cm [facility]i [facility] [place] [facility] Body weight 2020-07-16 01:38:00 46.267 kg [facility]i [facility] [place] [facility] BMI 2020-07-16 01:38:00 17.51 kg/m2 [facility] [place] [facility] Oxygen saturation in 2020-07-16 01:38:00 97 /min University of Arterial blood by [place] [employer] [facility] Pulse oximetry Branch Systolic blood 2020-07-16 01:38:00 148 mm[Hg] Univer sity of pressure [place] [facility] Systolic blood 2020-06-21 20:57:00 135 mm[Hg] Univer sity of pressure [place] [facility] Diastolic blood 2020-06-21 20:57:00 83 mm[Hg] Unive rsity of pressure [place] [facility] Heart rate 2020-06-21 20:57:00 83 /min [facility] [place] [facility] Body temperature 2020-06-21 20:57:00 36.56 Liza [facility] [place] [facility] Respiratory rate 2020-06-21 20:57:00 20 /[facility] 2020-06-21 20:57:00 162.6 cm [facility] Body weight 2020-06-21 20:57:00 47.537 kg [facility] BMI 2020-06-21 20:57:00 17.99 kg/m2 [facility] Procedures Procedure Date / Time Performed Performing Clinician [place] MODIFIED BARIUM 2021-03-31 14:28:00 [facility] [place] MODIFIED BARIUM 2021-03-31 14:28:00 [facility] EXTERNAL PROVIDER 2021-03-28 05:01:00 [facility] FLEXIBLE SCOPE ENT 2021-03-24 00:00:00 [facility] REFERRAL- 2021-01-14 06:01:00 Doctor Unassigned, No Univer [facility] [place] REQUEST/RESPONSE Name [facility] NOTICE OF PRIVACY 2020-07-16 01:31:17 [facility]igned, [facility] Name [facility] CONSENT/REFUSAL FOR 2020-07-16 01:30:46 [facility] AND Name [facility] TREATMENT Plan of Care Planned Activity Planned Date Details Comments Source Future Scheduled 2022-03-24 Depression screening [facility] [place] Test 00:00:00 (procedure) [code = Medical Branch [id number]] Future Scheduled 2022-03-24 Depression screening [facility] [place] Test 00:00:00 (procedure) [code = Medical Branch [id number]] Future Scheduled 2021-07-27 INFLUENZA VACCINE [facility]iver [facility]ity of [place] Test 00:00:00 (Season Ended) [code = Medic al Branch INFLUENZA VACCINE (Season Ended)] Future Scheduled 2021-07-27 INFLUENZA VACCINE [facility]ity of [place] Test 00:00:00 (Season Ended) [code = Medic al Branch INFLUENZA VACCINE (Season Ended)] Future Scheduled 2018-02-16 Screening for occult [facility] [place] Test 00:00:00 blood in feces Medical Branc h (procedure) [code = [id number]] Future Scheduled 2018-02-16 Stool DNA-based [facility] Test 00:00:00 colorectal cancer Medical Br anch screening (procedure) [code = 555847482388761] Future Scheduled 2018-02-16 Flexible fiberoptic [facility] Test 00:00:00 sigmoidoscopy Medical Branch (procedure) [code = [id number]] Future Scheduled 2018-02-16 Screening for [facility] Test 00:00:00 malignant neoplasm of Medica l Branch colon (procedure) [code = [id number]] Future Scheduled 2018-02-16 Screening for [facility] Test 00:00:00 malignant neoplasm of Medica l Branch colon (procedure) [code = [id number]] Future Scheduled 2018-02-16 Zoster Recom[facility]:00 Vaccine (SHINGRIX) (1 Medica l Branch of 2) [code = Zoster Recombinant Vaccine (SHINGRIX) (1 of 2)] Future Scheduled 2018-02-16 Screening for occult Uni [facility] Test 00:00:00 blood in feces Medical Branc h (procedure) [code = [id number]] Future Scheduled 2018-02-16 Stool DNA-based [facility] Test 00:00:00 colorectal cancer Medical Br anch screening (procedure) [code = 683323645723794] Future Scheduled 2018-02-16 Flexible fiberoptic [facility] Test 00:00:00 sigmoidoscopy Medical Branch (procedure) [code = 74483242] Future Scheduled 2018-02-16 Screening for [facility] Test 00:00:00 malignant neoplasm of Medica l Branch colon (procedure) [code = 776623988] Future Scheduled 2018-02-16 Screening for [facility] Test 00:00:00 malignant neoplasm of Medica l Branch colon (procedure) [code = 391155506] Future Scheduled 2018-02-16 Zoster Recombinant [facility] Test 00:00:00 Vaccine (SHINGRIX) (1 Medica l Branch of 2) [code = Zoster Recombinant Vaccine (SHINGRIX) (1 of 2)] Future Scheduled 2008 Screening for [facility] Test 00:00:00 malignant neoplasm of Medica l Branch breast (procedure) [code = 087219304] Future Scheduled 2008 Screening for [facility] Test 00:00:00 malignant neoplasm of Medica l Branch breast (procedure) [code = 177603508] Future Scheduled 1989-02-16 Screening for [facility] Test 00:00:00 malignant neoplasm of Medica l Branch cervix (procedure) [code = 490542204] Future Scheduled 1989-02-16 Screening for [facility] Test 00:00:00 malignant neoplasm of Medica l Branch cervix (procedure) [code = 805388628] Future Scheduled 1987-02-16 DTaP,Tdap,and Td [facility] [place] Test 00:00:00 Vaccines (1 - Tdap) Medical Branch [code = DTaP,Tdap,and Td Vaccines (1 - Tdap)] Future Scheduled 1987-02-16 DTaP,Tdap,and Td [facility] [place] Test 00:00:00 Vaccines (1 - Tdap) Medical Branch [code = DTaP,Tdap,and Td Vaccines (1 - Tdap)] Future Scheduled 1986-02-16 Hepatitis C screening [facility] [place] [facility] 00:00:00 (procedure) [code = Medical Branch 807844340] Future Scheduled 1986-02-16 Hepatitis C screening [facility] [place] [facility] 00:00:00 (procedure) [code = Medical Branch 847015733] Future Scheduled 1984 SARS-CoV-2 (COVID-19) [facility] [place] [facility] 00:00:00 Vaccine (1) [code = Medical Branch SARS-CoV-2 (COVID-19) Vaccine (1)] Future Scheduled 1984 SARS-CoV-2 (COVID-19) [facility] [place] [facility] 00:00:00 Vaccine (1) [code = Medical Branch SARS-CoV-2 (COVID-19) Vaccine (1)] Future Scheduled 1974-02-16 PNEUMOCOCCAL 0-64 [facility] [place] Test 00:00:00 YEARS COMBINED SERIES Medica l Branch (1 of 1 - PPSV23) [code = PNEUMOCOCCAL 0-64 YEARS COMBINED SERIES (1 of 1 - PPSV23)] Future Scheduled 1974-02-16 PNEUMOCOCCAL 0-64 [facility] [place] Test 00:00:00 YEARS COMBINED SERIES Medica l Branch (1 of 1 - PPSV23) [code = PNEUMOCOCCAL 0-64 YEARS COMBINED SERIES (1 of 1 - PPSV23)] Future Scheduled MOD BARIUM SWALLOW, [facility] Test (RUBENMARY) [code = 605] Medica l Branch Encounters Start End Encounter Admission Attending Care Care Encounter Source Date/Time Date/Time Type Type Clinicians Facility Department ID 2021-09-23 Emergency [facility] [id number] [facility] 2021-07-08 2021-07-08 Outpatient JAMIA_R [facility] [address] 03:56:00 03:56:00 [id number] [facility] 2021-07-08 2021-07-08 Outpatient Jamia [facility] [id number] 00:00:00 00:00:00 Devon [id number] Dominik [id number] 2021-05-26 2021-05-26 Outpatient Pedro Pablo LUO [facility] [id number] Univers 14:00:00 14:00:00 CLAYTON [id number] [facility] 2021-05-26 2021-05-26 Outpatient Pedro Pablo LUO [facility] [id number] Univers 14:00:00 14:00:00 CLAYTON [facility] 2021-03-31 2021-03-31 [facility] [id number] Univers 08:57:50 23:59:00 Encounter Clayton WOODSON [id number] ity of [facility] [id number] [place] [id number] [facility] 807 Branch 2021-03-31 2021-03-31 Ancillary Swallows, Gal Speech Modifie d Barium UNIVERSIT [id number] Univers 09:10:12 09:40:12 Visit Clayton Luo [id number] ity of [facility] [id number] [place] as B[address] [id number] [facility] BLDG. 145 Branch 2021-03-31 2021-03-31 [facility] [id number] Univers 09:00:00 09:00:00 CLAYTON [id number] [facility] 2021-03-31 2021-03-31 Outpatient R [facility] [id number] Univers 09:00:00 09:00:00 ity [facility] 2021-03-28 2021-03-28 Orders Doctor BENTON [id number] Univers 00:00:00 00:00:00 Only Unassigned, ANJELICA [id number] ity of [place] [facility] [id number] [place] as [id number] [address] 2021-03-28 2021-03-28 Telephone Valerio [facility] [id number] Univers 00:00:00 00:00:00 [facility] [id number] it y of Cancer [id number] [facility] - [id number] Med ica[address] 2021-03-24 2021-03-24 [facility] [id number] Univers 09:41:46 10:55:38 Visit Clayton [facility] [id number] it y of Cancer [id number] [facility] - [id number] Med ica[address] 2021-03-24 2021-03-24 [facility] [id number] Univers 10:00:00 10:00:00 CLAYTON [id number] [facility] 2021-03-24 2021-03-24 Outpatient R VALERIO [facility] [id number] Univers 10:00:00 10:00:00 CLAYTON [facility] 2021-01-27 2021-01-27 Outpatient R VALERIO [facility] [id number] Univers 11:00:00 11:00:00 CLAYTON [id number] [facility] 2021-01-27 2021-01-27 [facility] [id number] Univers 11:00:00 11:00:00 [facility] 2021-01-14 2021-01-14 Orders Doctor BHARDWAJ [id number] Univers 00:00:00 00:00:00 Only Unassigned, ANJELICA [id number] ity of [facility] [id number] [facility] 009 Branch 2021-01-11 2021-01-11 Outpatient ERICKSON_R [facility] [address] 11:48:00 11:48:00 [id number] [facility] 2021-01-03 2021-01-03 Outpatient ERICKSON_R [facility] [address] 02:52:00 02:52:00 0208 [facility] 2020-12-23 2020-12-23 Outpatient ERICKSON_R [facility] [address] 10:35:00 10:35:00 0128 [facility] 2020-12-20 2020-12-20 Outpatient ERICKSON_R [facility] [address] 06:44:00 06:44:00 0125 [facility] 2020-12-20 2020-12-20 Outpatient Post, [facility] [id number] 00:00:00 00:00:00 Devon [id number] Dominik [id number] 2020-09-22 2020-09-22 Outpatient R JAILYN [facility] [id number] Univers 14:30:00 14:30:00 PARESH [id number] ity [facility] 2020-09-22 2020-09-22 Outpatient Pedro Pablo TOURE [facility] [id number] Univers 14:30:00 14:30:00 PARESH ity [facility] 2020-07-15 2020-07-15 Emergency [facility] [id number] Univers 21:56:00 21:57:00 Analilia Olivares [id number] ity [facility] [id number] [facility] [id number] 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 Intelligence Consultant Pcp-Lab [facility] 1.2.840.114 [id number] Univers 14:36:57 14:46:57 Visit Gisella Rain H PRIMARY [id number] [id number] [id number] Mo dical [address] 2020-06-25 2020-06-25 Outpatient R [facility] [id number] Univers 14:40:00 14:40:00 [id number] ity [facility] 2020-06-25 2020-06-25 Outpatient R KOFFI [facility] [id number] Univers 14:40:00 14:40:00 GISELLA ity [facility] 2020-06-21 2020-06-21 Office Jailyn [facility] [id number] Univers 15:42:35 16:45:34 Visit Paresh PRIMARY [id number] [id number] [id number] Mo dical [address] 2020-06-21 2020-06-21 Outpatient R JAILYN [facility] [id number] Univers 15:00:00 15:00:00 PARESH ity [facility] Results Test Description Test Time Test Comments Results Result Sourc e Comments FLEXIBLE SCOPE 2021-03-24 Please see [facility] 00:[facility]:00 endoscopic [place] [facility] from [facility] note from 03/24/2021. FLEXIBLE SCOPE 2021-03-24 Please see [facility] 00:00:00 endoscopic [place] [facility] findings from [facility] note from 03/24/2021. FLEXIBLE SCOPE 2021-03-24 Please see [facility] 00:00:00 endoscopic [place] [facility] findings from [facility] note from 03/24/2021.
[2021-12-02] MEDS ORDERED: HYDROCODONE/APAP 10/325 TAB ONE (20:59)
[2021-12-02] MEDS ORDERED: LIDOCAINE 1% W/EPI 1:100,000 MDV 50 ML VIAL ONE (20:59)
[2021-12-02] MEDS ORDERED: BUPIVACAINE 0.5% PF 10 ML VIAL ONE (20:59)
--- NOTE | 2021-12-02 23:08 | EDPHYS ---
Physician Documentation [facility] Name: Zeynep Sagastume Age: 51 yrs Sex: Female : 1970 Arrival Date: 12/02/2021 Time: 19:09 Bed 12 Private MD: ED Physician David Esqueda HPI: 12/02 23:37 This 51 yrs old Female presents to ER via Ambulatory with complaints of Arm Pain, kdr Insect Bite. 23:37 Onset: The symptoms/episode began/occurred gradually, 1 week(s) ago. Treatment prior to kdr arrival includes: no previous treatment. Modifying factors: The symptoms are alleviated by nothing. the symptoms are aggravated by nothing. Associated signs and symptoms: The patient has no apparent associated signs or symptoms. Severity of symptoms: At their worst the symptoms were moderate, in the emergency department the symptoms are unchanged. The patient has not experienced similar symptoms in the past. Patient states that last week she was working in her flower bed and noted that she thought she had an ant bite to her right forearm. Since then it has grown in size and become more painful and has been draining purulent fluid. She denies fever, chills, nausea or vomiting. 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 - Social history:: Smoking status: Patient reports the use of cigarette tobacco products, smokes one-half pack cigarettes per day. ROS: 23:37 Constitutional: Negative for fever, chills, and weight loss, Eyes: Negative for injury, kdr pain, redness, and discharge, Neck: Negative for injury, pain, and swelling, Cardiovascular: Negative for chest pain, palpitations, and edema, Respiratory: Negative for shortness of breath, cough, wheezing, and pleuritic chest pain, Abdomen/GI: Negative for abdominal pain, nausea, vomiting, diarrhea, and constipation, Back: Negative for injury and pain, : Negative for injury, bleeding, discharge, and swelling, Neuro: Negative for headache, weakness, numbness, tingling, and seizure activity. Psych: Negative for depression, anxiety, suicide ideation, homicidal ideation, and hallucinations, Allergy/Immunology: Negative for hives, rash, and allergies, Endocrine: Negative for neck swelling, polydipsia, polyuria, polyphagia, and marked weight changes, Hematologic/Lymphatic: Negative for swollen nodes, abnormal bleeding, and unusual bruising. 23:37 MS/extremity: Positive for ecchymosis, erythema, pain, swelling, tenderness, of the dorsal aspect of right forearm. Exam: 23:37 Constitutional: This is a well developed, well nourished patient who is awake, alert, kdr and in no acute distress. Head/Face: Normocephalic, atraumatic. Eyes: Pupils equal round and reactive to light, extra-ocular motions intact. Lids and lashes normal. Conjunctiva and sclera are non-icteric and not injected. Cornea within normal limits. Periorbital areas with no swelling, redness, or edema. 23:37 Skin: abscess, that is moderate sized, approximately 2 cm(s), of the dorsal aspect of right forearm, cellulitis, that is mild, that is moderate, confluent, well demarcated, induration, that is moderate is noted. Vital Signs: 19:35 BP 142 / 68; Pulse 76; Resp 18; Temp 97; Pulse Ox 100% on R/A; Weight 56.25 kg; Height vc1 5 ft. 4 in. (162.56 cm); Pain 7/10; 19:35 BP 142 / 68; Pulse 76; Resp 18; Temp 97; Pulse Ox 100% on R/A; Weight 56.25 kg; Height vc1 5 ft. 4 in. (162.56 cm); Pain 7/10; 23:27 BP 132 / 59; Pulse 54; Resp 16 S; Temp 98.1(TE); Pulse Ox 97% on R/A; bb 19:35 Body Mass Index 21.28 (56.25 kg, 162.56 cm) vc1 Procedures: 23:03 I \T\ D: Incision and drainage was performed for an abscess of the right right forearm kdr Prepped with Betadine, Anesthetized with 1 ml's 1% Lidocaine w/ Epi. Marcaine 0.25%. Incised with #11 blade. Drained small amount purulent fluid. Packed with iodoform gauze, Dressing: sterile 4x4 gauze, non-Adherent dressing, the patient tolerated the procedure well, Patient was not able to tolerate significant pressure over the wound so as to allow me to fully express any outlying purulent material. MDM: 23:03 Data reviewed: vital signs, nurses notes. Counseling: I had a detailed discussion with kdr the patient and/or guardian regarding: the historical points, exam findings, and any diagnostic results supporting the discharge/admit diagnosis, the need for outpatient follow up. 23:08 Patient medically screened. kdr Administered Medications: 21:00 Drug: [place] (HYDROcodone-acetaminophen) 10 mg-325 mg 1 tabs {Note: RASS 0.} Route: PO; bb Disposition Summary: 12/02/21 23:08 Discharge Ordered Location: Home kdr Problem: new kdr Symptoms: have improved kdr Condition: Stable kdr Diagnosis - Cellulitis of right upper limb kdr Followup: kdr - With: Private Physician - When: 2 - 3 days - Reason: If symptoms return, Further diagnostic work-up, Recheck today's complaints, Continuance of care, Re-evaluation by your physician Discharge Instructions: - Discharge Summary Sheet kdr - Cellulitis, Adult kdr - Skin Abscess, [id number] kdr - Cellulitis, Adult, [id number] kdr Forms: - Medication Reconciliation Form kdr - Thank You Letter kdr - Antibiotic Education kdr - Prescription Opioid Use kdr Prescriptions: - Cephalexin 500 mg Oral Capsule - take 1 capsule by ORAL route every 8 hours for 10 days; 30 capsule; Refills: 0, kdr Product Selection Permitted - Tramadol 50 mg Oral Tablet - take 1 tablet by ORAL route every 8 hours as needed; 12 tablet; Refills: 0, kdr Product Selection Permitted - Bactrim DS 800-160 mg Oral Tablet - take 1 tablet by ORAL route every 12 hours for 10 days; 20 tablet; Refills: 0, kdr Product Selection Permitted Signatures: David Esqueda MD MD kdr Anju Pruitt RN RN bb Geneva Valverde RN RN vc1
--- NOTE | 2021-12-02 23:08 | ER ---
Nurse's Notes [facility] Name: Zeynep Sagastume Age: 51 yrs Sex: Female : 1970 Arrival Date: 12/02/2021 Time: 19:09 Bed 12 Private MD: Diagnosis: Cellulitis of right upper limb Presentation: 12/02 19:30 Chief complaint: Patient states: Last week I was working in my flower bed and got bit. vc1 It started out looking like an ant bite but now it is really swollen and hurts really bad. Coronavirus screen: Vaccine status: Patient reports being unvaccinated. Client denies travel out of the [place] in the last 14 days. At this time, the client does not indicate any symptoms associated with coronavirus-19. Ebola Screen: No symptoms or risks identified at this time. Initial Sepsis Screen: Does the patient meet any 2 criteria? No. Patient's initial sepsis screen is negative. Does the patient have a suspected source of infection? Yes: Other: bite No. Patient's initial sepsis screen is negative. Risk Assessment: Do you want to hurt yourself or someone else? Patient reports no desire to harm self or others. Onset of symptoms is unknown. 19:30 Method Of Arrival: Ambulatory vc1 19:30 Acuity: BOB 4 vc1 Triage Assessment: 19:33 Bite description: bite sustained to dorsal aspect of right forearm by an unknown vc1 animal, Possibly an ant, animal information: vaccination(s) is not applicable. General: Appears in no apparent distress. uncomfortable, Behavior is calm, cooperative, appropriate for age. Pain: Complains of pain in dorsal aspect of right forearm Pain currently is 7 out of 10 on a pain scale. EENT: No deficits noted. Neuro: No deficits noted. Injury Description: Bite sustained to dorsal aspect of right forearm. 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 - Social history:: Smoking status: Patient reports the use of cigarette tobacco products, smokes one-half pack cigarettes per day. Screenin:00 Abuse screen: Denies threats or abuse. Nutritional screening: No deficits noted. bb Tuberculosis screening: No symptoms or risk factors identified. Fall Risk None identified. Assessment: 21:00 General: Appears uncomfortable, slender, Behavior is cooperative, agitated, anxious. bb Pain: Complains of pain in right arm. Neuro: Level of Consciousness is awake, alert, obeys commands, Oriented to person, place, time, situation. Cardiovascular: Capillary refill < 3 seconds Patient's skin is warm and dry. Respiratory: Respiratory effort is even, unlabored. GI: No signs and/or symptoms were reported involving the gastrointestinal system. Derm: Skin is intact, Skin is pink, warm \T\ dry. Abscess located on right arm is half dollar sized, is red, is raised. Musculoskeletal: Circulation, motion, and sensation intact. 23:27 Reassessment: Patient is alert, oriented x 3, equal unlabored respirations, skin bb warm/dry/pink. bandage to right arm intact, dry, pt verbalized understanding of and agrees to plan of care discharge instructions given pt ambulated with steady gait to exit accompanied by family. Vital Signs: 19:35 BP 142 / 68; Pulse 76; Resp 18; Temp 97; Pulse Ox 100% on R/A; Weight 56.25 kg; Height vc1 5 ft. 4 in. (162.56 cm); Pain 7/10; 19:35 BP 142 / 68; Pulse 76; Resp 18; Temp 97; Pulse Ox 100% on R/A; Weight 56.25 kg; Height vc1 5 ft. 4 in. (162.56 cm); Pain 7/10; 23:27 BP 132 / 59; Pulse 54; Resp 16 S; Temp 98.1(TE); Pulse Ox 97% on R/A; bb 19:35 Body Mass Index 21.28 (56.25 kg, 162.56 cm) vc1 ED Course: 19:09 Patient arrived in ED. ja2 19:32 Triage completed. vc1 19:35 Arm band placed on right wrist. vc1 20:22 David Esqueda MD is Attending Physician. kdr 21:00 Patient has correct armband on for positive identification. bb 21:11 Anju Pruitt, RN is Primary Nurse. bb 23:10 Assist provider with I \T\ D: of an abscess on right arm Set up I\T\D tray. Performed by bb David Esqueda MD Wound packed. iodoform gauze, Patient tolerated well. 23:15 Dressings: non-adherent pad place to wound on right arm covered with and yoni wrap pt bb instructed on wound care and verbalized understanding. 23:35 Patient did not have IV access during this emergency room visit. bb Administered Medications: 21:00 Drug: [place] (HYDROcodone-acetaminophen) 10 mg-325 mg 1 tabs {Note: RASS 0.} Route: PO; bb Outcome: 23:08 Discharge ordered by . kdr 23:35 Discharged to home ambulatory, with family. bb 23:35 Condition: stable 23:35 Discharge instructions given to patient, Instructed on discharge instructions, follow up and referral plans. medication usage, wound care, Demonstrated understanding of instructions, follow-up care, medications, wound care, Prescriptions given X 3. 23:35 Patient left the ED. bb Signatures: David Esqueda MD MD [facility] Anju Pruitt, RN RN Willa Mari Vanessa RN RN vc1
== END 2021-12-02 23:35 | disposition home or self-care (01) ==
LOC: ER 19:04
PROC: 0J9G0ZZ Drainage of Right Lower Arm Subcutaneous Tissue and Fascia, Open Approach (ICD-10-PCS; principal; 2021-12-02)
DX: L03.113 Cellulitis of right upper limb (principal); E03.9 Hypothyroidism, unspecified; F17.210 Nicotine dependence, cigarettes, uncomplicated
CPT/HCPCS: 99283